=== PATIENT | female | born 1965 | race Caucasian/White ===

== ENCOUNTER 2023-06-11 06:28 | Day surgery (SDC) | payer MEDICARE, MEDICAID ==
[~2023-06-11] VITALS: Ht 165.1 cm; Wt 58.5 kg
[2023-06-11 09:06] VITALS: O2SAT 99
[2023-06-11] MEDS: MIDAZOLAM HCL 5 MG/5 ML VIAL ONE (10:05)
[2023-06-11] MEDS: fentaNYL CITRATE/PF 100 MCG/2 ML AMP ONE (10:05)
[2023-06-11 16:30] VITALS: BP_SYST 93; PULSE 60; RESP 14
== END 2023-06-11 11:51 | disposition home or self-care (01) ==
LOC: SDS 06:28 → SMU 06:31 → SDS 11:51
PROVIDERS: ATTEND Internal Medicine
DX: K56.609 Unspecified intestinal obstruction, unspecified as to partial versus complete obstruction (principal); Z93.3 Colostomy status; F41.9 Anxiety disorder, unspecified; Z79.899 Other long term (current) drug therapy
CPT/HCPCS: 44388; 99152; G0378; J2250; J3010

== ENCOUNTER 2023-10-26 10:06 | Day surgery (SDC) | payer MEDICARE, MEDICAID ==
[~2023-10-26] VITALS: Ht 165.1 cm; Wt 57.6 kg
[2023-10-26] MEDS ORDERED: MIDAZOLAM HCL 5 MG/5 ML VIAL ONE (12:20)
[2023-10-26] MEDS ORDERED: fentaNYL CITRATE/PF 100 MCG/2 ML AMP ONE (12:20)
[2023-10-26 13:16] VITALS: O2SAT 99
[2023-10-26 15:27] VITALS: BP_SYST 115; PULSE 84; RESP 17
== END 2023-10-26 14:20 | disposition home or self-care (01) ==
LOC: SDS 10:06 → SMU 10:09 → SDS 14:20
PROVIDERS: ATTEND Colon & Rectal Surgery
DX: Z12.11 Encounter for screening for malignant neoplasm of colon (principal); K62.89 Other specified diseases of anus and rectum; Z98.890 Other specified postprocedural states; Z79.899 Other long term (current) drug therapy; Z88.0 Allergy status to penicillin; Z80.41 Family history of malignant neoplasm of ovary; Z90.49 Acquired absence of other specified parts of digestive tract; Z80.0 Family history of malignant neoplasm of digestive organs; Z93.3 Colostomy status
CPT/HCPCS: 44388; 45330; 99152; 99153; G0378; J2250; J3010

== ENCOUNTER 2023-12-14 08:59 | Inpatient (IN) | payer MEDICARE, MEDICAID ==
[~2023-12-14] VITALS: Ht 165.1 cm; Wt 56.2 kg
[2023-12-14] MEDS: BUPIVACAINE LIPOSOME/PF 266 MG/20 ML VIAL INFIL ONE (09:31)
[2023-12-14] MEDS: CLINDAMYCIN PHOS 600 MG/ D5W 50 ML PREMIX IV ONE (09:45)
[2023-12-14] MEDS: CEFAZOLIN 2 GM IVPB PREMIX 50 ML IV ONE (09:50)
[2023-12-14] MEDS: CLINDAMYCIN 600 mg/50mL D5W 50 ML IV ONE (09:57)
[2023-12-14] MEDS ORDERED: LR 1,000 ML IV.SOLN IV ONE (10:00)
[2023-12-14] MEDS ORDERED: metroNIDAZOLE 500 mg/NS 100 mL IVPB IV ONE (10:00)
[2023-12-14] MEDS ORDERED: SEVOFLURANE 15 MIN GAS INH ONE (10:00)
[2023-12-14] MEDS ORDERED: NS IRRIG SOLN 1000 ML IR ONE (10:00)
[2023-12-14] MEDS ORDERED: ONDANSETRON HCL 4 MG/2 ML VIAL ONE (10:00)
[2023-12-14] MEDS ORDERED: METOCLOPRAMIDE HCL 10 MG/2 ML VIAL ONE (10:00)
[2023-12-14] MEDS ORDERED: ROCURONIUM BROMIDE 10 MG/ML (ZEMURON) ONE (10:00)
[2023-12-14] MEDS ORDERED: DEXAMETHASONE SOD PHOSPHATE 4 MG/ML VIAL ONE (10:00)
[2023-12-14] MEDS ORDERED: GLYCOPYRROLATE 0.2 MG/ML VIAL ONE (10:00)
[2023-12-14] MEDS ORDERED: ePHEDrine sulfate 50 MG/ML VIAL ONE (10:00)
[2023-12-14] MEDS ORDERED: NEOSTIGMINE METHYLSULFATE 1 MG/ML, 10 ML VIAL ONE (10:00)
[2023-12-14] MEDS ORDERED: WATER FOR IRRIGATION,STERILE 1,000 ML IRRIG.SOLN IR ONE (10:00)
[2023-12-14] MEDS ORDERED: PROPOFOL 200MG/ 20ML VIAL (DIPRIVAN) IV ONE (10:00)
[2023-12-14] MEDS: HYDROmorphone 2 MG/ML VIAL ONE (10:02)
[2023-12-14] MEDS ORDERED: MORPHINE 4 MG INJ. 4 MG/ML VIAL IVP PRN ×2 (12:15)
[2023-12-14] MEDS ORDERED: ONDANSETRON HCL 4 MG/2 ML VIAL IVP PRN (12:15)
[2023-12-14] MEDS ORDERED: METOCLOPRAMIDE HCL 10 MG/2 ML VIAL IVP PRN (12:15)
[2023-12-14] MEDS ORDERED: NALOXONE HCL 0.4 MG/ML AMP (NARCAN) IVP PRN ×4 (12:15→15:15)
[2023-12-14] MEDS: ONDANSETRON HCL 4 MG/2 ML VIAL ONE (15:00)
[2023-12-14] MEDS: ACETAMINOPHEN I.V. 1000 MG 100 ML IV ONE ×2 (15:10→15:15)
[2023-12-14] MEDS: HYDROmorphone 1 MG/ML INJ. CARTRIDGE ONE ×3 (15:14→16:14)
[2023-12-14] MEDS: fentaNYL CITRATE/PF 100 MCG/2 ML AMP IVP ONE ×2 (15:15→15:20)
[2023-12-14] MEDS ORDERED: HYDROcodone/ACETAMIN 5-325 MG TAB (NORCO/ VICODIN) PO PRN (15:15)
[2023-12-14] MEDS ORDERED: ACETAMINOPHEN 325 MG TABLET PO PRN (15:15)
[2023-12-14] MEDS: fentaNYL CITRATE/PF 100 MCG/2 ML AMP ONE (15:15)
[2023-12-14] MEDS: HYDROmorphone 1 MG/ML INJ. CARTRIDGE IVP PRN ×2 (16:00→20:27)
[2023-12-14 16:14] LABS: HEMATOCRIT 31.9 % (36-48)
[2023-12-14 16:28] LABS: CALCIUM 8.2 mg/dL (8.4-11.0); CREATININE 0.75 mg/dL (0.55-1.30); POTASSIUM 3.4 mmol/L (3.5-5.1)
[2023-12-14] MEDS ORDERED: IBUP-2604 PO (16:38)
[2023-12-14] MEDS ORDERED: TRAZ-251 PO (16:38)
[2023-12-14] MEDS ORDERED: ACET325T53 PO (16:38)
[2023-12-14] MEDS ORDERED: GABA-534 PO (16:38)
[2023-12-14 17:16] VITALS: BP_SYST 127; PULSE 85; RESP 14; TEMP 97.3; O2SAT 100
[2023-12-14 17:33] VITALS: BP_SYST 127; PULSE 85; RESP 16; TEMP 97.3; O2SAT 100
[2023-12-14 20:00] VITALS: O2SAT 98
[2023-12-14] MEDS: D5/0.45 NS 1,000 ML IV SCH (22:10)
[2023-12-14] MEDS: FAMOTIDINE PF 20 MG/2 ML VIAL IVP SCH (23:45)
[2023-12-15] VITALS (7 sets, daily range): BP systolic 132–152; PULSE 73–95; RESP 15–20; TEMP 96.6–98.3; O2SAT 97–100
[2023-12-15] MEDS: metroNIDAZOLE 500 mg/NS 100 ML IV SCH (00:55)
[2023-12-15] MEDS ORDERED: CALCIUM GLUCONATE 2 GM in NS 100 ML IV ONE (08:30)
[2023-12-15] MEDS: ENOXAPARIN SODIUM 30 MG/0.3 ML SYRINGE SUBCUT SCH (08:37)
[2023-12-15] MEDS: HYDROcodone/ACETAMIN 5-325 MG TAB (NORCO/ VICODIN) PO PRN (10:14)
[2023-12-15] MEDS ORDERED: NALOXONE HCL 0.4 MG/ML AMP (NARCAN) IVP PRN ×2 (10:45→12:45)
[2023-12-15] MEDS: MEPERIDINE 50 MG/ML VIAL IM PRN (11:06)
[2023-12-15] MEDS: HYDROmorphone 1 MG/ML INJ. CARTRIDGE IVP PRN (15:46)
[2023-12-15 16:06] LABS: RED CELL DISTRIBUTION WIDTH 13.1 % (9.0-15.0); WHITE BLOOD COUNT (AUTO) 13.7 K/uL (4.8-10.8)
[2023-12-15 16:16] LABS: ALBUMIN 3.4 g/dL (3.4-4.8); CALCIUM 8.8 mg/dL (8.4-11.0); CREATININE 0.66 mg/dL (0.55-1.30); POTASSIUM 3.1 mmol/L (3.5-5.1); TOTAL BILIRUBIN 0.6 mg/dL (0.0-1.0); TOTAL PROTEIN, SERUM 6.7 g/dL (6.4-8.3)
[2023-12-15 16:52] LABS: BASOPHILS % (AUTO) 0.3 % (0.0-2.0); HEMATOCRIT 31.5 % (36-48); LYMPHOCYTES # (AUTO) 1.5 K/uL (1.0-5.5); LYMPHOCYTES % (AUTO) 11.1 % (20.5-51.5); MEAN CORPUSCULAR HEMOGLOBIN 36 pg (27-31); MEAN CORPUSCULAR HGB CONC 35 % (32-36); MEAN CORPUSCULAR VOLUME 103 fL (79.0-98.0); MONOCYTES # (AUTO) 0.7 K/uL (0.0-1.0); MONOCYTES % (AUTO) 4.9 % (1.7-9.3); NEUTROPHILS # (AUTO) 11.4 K/uL (1.8-7.7); NEUTROPHILS % (AUTO) 83.7 % (40.0-70.0); PLATELET COUNT (AUTO) 316 K/uL (130-430); RED BLOOD CELL COUNT(AUTO) 3.06 MIL/uL (4.2-6.2)
[2023-12-15] MEDS: METOCLOPRAMIDE HCL 10 MG/2 ML VIAL IVP SCH (18:18)
[2023-12-15] MEDS: POTASSIUM CHLORIDE 40 MEQ in NS 250 ML IV ONE (19:52)
[2023-12-16 00:02] VITALS: BP_SYST 148; PULSE 99; RESP 16; TEMP 98.4; O2SAT 99
[2023-12-16 08:00] VITALS: O2SAT 99
[2023-12-16 08:12] VITALS: BP_SYST 132; PULSE 121; TEMP 98.5; O2SAT 99
[2023-12-16 11:10] VITALS: BP_SYST 136; PULSE 109; RESP 16; TEMP 98.7; O2SAT 99
[2023-12-16 15:51] VITALS: BP_SYST 119; PULSE 107; RESP 16; TEMP 97.1; O2SAT 96
[2023-12-16 17:26] LABS: BASOPHILS % (AUTO) 0.3 % (0.0-2.0); EOSINOPHILS % (AUTO) 0.3 % (0.0-4.0); HEMATOCRIT 28.6 % (36-48); LYMPHOCYTES # (AUTO) 1.9 K/uL (1.0-5.5); MEAN CORPUSCULAR HEMOGLOBIN 36 pg (27-31); MEAN CORPUSCULAR HGB CONC 35 % (32-36); MEAN CORPUSCULAR VOLUME 102 fL (79.0-98.0); MONOCYTES # (AUTO) 0.5 K/uL (0.0-1.0); MONOCYTES % (AUTO) 4.3 % (1.7-9.3); NEUTROPHILS # (AUTO) 10.3 K/uL (1.8-7.7); NEUTROPHILS % (AUTO) 80.1 % (40.0-70.0); PLATELET COUNT (AUTO) 290 K/uL (130-430); RED CELL DISTRIBUTION WIDTH 12.6 % (9.0-15.0); WHITE BLOOD COUNT (AUTO) 12.8 K/uL (4.8-10.8)
[2023-12-16 17:30] LABS: ALBUMIN 2.9 g/dL (3.4-4.8); CALCIUM 8.4 mg/dL (8.4-11.0); CREATININE 0.64 mg/dL (0.55-1.30); POTASSIUM 3.1 mmol/L (3.5-5.1); TOTAL BILIRUBIN 0.5 mg/dL (0.0-1.0); TOTAL PROTEIN, SERUM 6.4 g/dL (6.4-8.3)
[2023-12-16 20:00] VITALS: BP_SYST 126; PULSE 112; RESP 18; TEMP 98.4; O2SAT 98
[2023-12-17 00:41] VITALS: BP_SYST 126; PULSE 103; RESP 18; TEMP 98.2
[2023-12-17 08:00] VITALS: BP_SYST 119; PULSE 102; RESP 15; TEMP 97.7; O2SAT 96
[2023-12-17 09:48] VITALS: O2SAT 96
[2023-12-17 12:50] VITALS: BP_SYST 126; PULSE 105; RESP 18; TEMP 98.6; O2SAT 99
[2023-12-17] MEDS: ONDANSETRON HCL 4 MG/2 ML VIAL IVP PRN (13:23)
[2023-12-17] MEDS: POTASSIUM CHLORIDE 40 MEQ in NS 250 ML IV ONE (14:00)
[2023-12-17 17:18] VITALS: BP_SYST 128; PULSE 101; RESP 16; TEMP 98.4; O2SAT 99
[2023-12-17 20:00] VITALS: BP_SYST 146; PULSE 95; RESP 20; TEMP 96; O2SAT 97
[2023-12-18] VITALS: BP_SYST 138; PULSE 103; RESP 18; TEMP 96.9; O2SAT 99
[2023-12-18 06:51] LABS: BASOPHILS % (AUTO) 0.2 % (0.0-2.0); HEMATOCRIT 29.8 % (36-48); HEMOGLOBIN 10.1 g/dL (12.0-16.0); LYMPHOCYTES # (AUTO) 0.7 K/uL (1.0-5.5); LYMPHOCYTES % (AUTO) 4.9 % (20.5-51.5); MEAN CORPUSCULAR HEMOGLOBIN 35 pg (27-31); MEAN CORPUSCULAR HGB CONC 34 % (32-36); MEAN CORPUSCULAR VOLUME 103 fL (79.0-98.0); MONOCYTES # (AUTO) 0.7 K/uL (0.0-1.0); MONOCYTES % (AUTO) 5.4 % (1.7-9.3); NEUTROPHILS # (AUTO) 12.2 K/uL (1.8-7.7); NEUTROPHILS % (AUTO) 89.5 % (40.0-70.0); PLATELET COUNT (AUTO) 411 K/uL (130-430); RED CELL DISTRIBUTION WIDTH 12.4 % (9.0-15.0); WHITE BLOOD COUNT (AUTO) 13.6 K/uL (4.8-10.8)
[2023-12-18 07:28] LABS: ALBUMIN 3.2 g/dL (3.4-4.8); CALCIUM 8.7 mg/dL (8.4-11.0); CREATININE 0.54 mg/dL (0.55-1.30); POTASSIUM 3.2 mmol/L (3.5-5.1); TOTAL BILIRUBIN 0.6 mg/dL (0.0-1.0); TOTAL PROTEIN, SERUM 6.8 g/dL (6.4-8.3)
[2023-12-18 08:38] VITALS: BP_SYST 139; PULSE 103; RESP 18; TEMP 96.9; O2SAT 98
[2023-12-18 09:30] VITALS: O2SAT 98
[2023-12-18 12:07] VITALS: BP_SYST 137; PULSE 98; RESP 19; TEMP 96.4; O2SAT 96
[2023-12-18] MEDS: POTASSIUM CHLORIDE 40 MEQ in NS 250 ML IV ONE (14:26)
[2023-12-18 16:05] VITALS: BP_SYST 138; PULSE 100; RESP 18; TEMP 97.2; O2SAT 97
[2023-12-18 20:00] VITALS: BP_SYST 140; PULSE 101; RESP 18; TEMP 97.7; O2SAT 98
[2023-12-19 09:00] VITALS: O2SAT 98
[2023-12-19 09:08] VITALS: BP_SYST 138; PULSE 94; RESP 19; TEMP 97.2; O2SAT 100
[2023-12-19 12:47] VITALS: BP_SYST 139; PULSE 96; RESP 20; TEMP 97.4; O2SAT 97
[2023-12-19 16:00] VITALS: BP_SYST 130; PULSE 110; RESP 18; TEMP 98.2; O2SAT 98
[2023-12-19 20:00] VITALS: BP_SYST 145; PULSE 97; RESP 18; TEMP 98.4; O2SAT 99
[2023-12-20] VITALS: BP_SYST 142; PULSE 97; RESP 18; TEMP 98.4; O2SAT 96
[2023-12-20 08:02] VITALS: BP_SYST 143; PULSE 94; RESP 16; TEMP 98.5
[2023-12-20 12:57] VITALS: BP_SYST 144; PULSE 95; RESP 17; TEMP 98.6; O2SAT 98
[2023-12-20 16:01] VITALS: BP_SYST 140; PULSE 92; RESP 16; TEMP 98.7; O2SAT 97
[2023-12-20 16:42] LABS: CALCIUM 8.9 mg/dL (8.4-11.0); CREATININE 0.81 mg/dL (0.55-1.30); TOTAL BILIRUBIN 0.5 mg/dL (0.0-1.0)
[2023-12-20 17:12] LABS: HEMATOCRIT 30.3 % (36-48); HEMOGLOBIN 10.5 g/dL (12.0-16.0); MEAN CORPUSCULAR HEMOGLOBIN 34 pg (27-31); MEAN CORPUSCULAR HGB CONC 35 % (32-36); MEAN CORPUSCULAR VOLUME 99 fL (79.0-98.0); PLATELET COUNT (AUTO) 523 K/uL (130-430); RED BLOOD CELL COUNT(AUTO) 3.05 MIL/uL (4.2-6.2); RED CELL DISTRIBUTION WIDTH 12.6 % (9.0-15.0); WHITE BLOOD COUNT (AUTO) 11.7 K/uL (4.8-10.8)
[2023-12-20 19:15] LABS: BAND % (MANUAL) 26 % (0-6); BASOPHILS % (MANUAL) 0 % (0-2); EOSINOPHILS % (MANUAL) 1 % (0-7); LYMPHOCYTES % (MANUAL) 12 % (20-46); MONOCYTES % (MANUAL) 16 % (0-11); PLATELET ESTIMATE INCREASED (ADEQUATE); POLYCHROMASIA 1+
[2023-12-20 19:16] LABS: STOMATOCYTES FEW; TEAR DROP CELLS FEW
[2023-12-20 20:00] VITALS: BP_SYST 140; PULSE 93; RESP 18; TEMP 97.3; O2SAT 97
[2023-12-20] MEDS: KCL 40 mEq in 100 mL (PREMIX) 100 ML IV ONE (21:17)
[2023-12-20] MEDS: POTASSIUM CHLORIDE 40 MEQ in NS 250 ML IV ONE (21:18)
[2023-12-20] MEDS: HYDROmorphone 1 MG/ML INJ. CARTRIDGE IVP PRN (21:37)
[2023-12-21 00:12] VITALS: BP_SYST 138; PULSE 87; RESP 18; TEMP 98.1; O2SAT 99
[2023-12-21 06:56] LABS: ALBUMIN 3.2 g/dL (3.4-4.8); CREATININE 0.8 mg/dL (0.55-1.30); TOTAL BILIRUBIN 0.5 mg/dL (0.0-1.0); TOTAL PROTEIN, SERUM 6.5 g/dL (6.4-8.3)
[2023-12-21 08:00] VITALS: BP_SYST 134; PULSE 96; RESP 18; TEMP 99.1; O2SAT 100
[2023-12-21 08:35] LABS: POTASSIUM 2.8 mmol/L (3.5-5.1)
[2023-12-21] MEDS ORDERED: KCL 40 mEq in 100 mL (PREMIX) 100 ML IV ONE (08:45)
[2023-12-21] MEDS: POTASSIUM CHLORIDE 20 mEq in 100 mL (PREMIX) 100 ML x 2 doses IV SCH (09:16)
[2023-12-21 10:30] VITALS: O2SAT 100
[2023-12-21 11:07] VITALS: BP_SYST 140; PULSE 92; RESP 14; TEMP 96.8; O2SAT 97
[2023-12-21] MEDS: DIPHENHYDRAMINE INJ 50 MG/ML VIAL IM PRN (14:33)
[2023-12-21 16:14] VITALS: BP_SYST 135; PULSE 91; RESP 14; TEMP 97.3; O2SAT 97
[2023-12-21 20:00] VITALS: BP_SYST 146; PULSE 120; RESP 16; TEMP 98.7; O2SAT 99
== END 2023-12-22 03:42 | disposition left against medical advice (07) | DRG 331 ==
LOC: SMU 08:59
PROVIDERS: ADMIT Colon & Rectal Surgery; ATTEND Colon & Rectal Surgery
PROC: 0DB80ZZ Excision of Small Intestine, Open Approach (ICD-10-PCS; 2023-12-14)
PROC: 0DSM0ZZ Reposition Descending Colon, Open Approach (ICD-10-PCS; 2023-12-14)
PROC: 0DBN0ZZ Excision of Sigmoid Colon, Open Approach (ICD-10-PCS; 2023-12-14)
PROC: 0DN80ZZ Release Small Intestine, Open Approach (ICD-10-PCS; 2023-12-14)
PROC: 0DTJ0ZZ Resection of Appendix, Open Approach (ICD-10-PCS; principal; 2023-12-14 10:10)
DX: Z43.3 Encounter for attention to colostomy (principal); K66.0 Peritoneal adhesions (postprocedural) (postinfection); Z98.0 Intestinal bypass and anastomosis status
CPT/HCPCS: 36415; 80048; 80053; 84132; 85007; 85018; 85025; 85027; 86886; 86900; 86901; 87081; 88304; 88305; 88307; 97110-GP; 97116-GP; 97530-GP; C9290; J0131; J0690; J1100; J1171; J1200; J1650; J1956; J2175; J2405; J2704; J2710; J2765; J3010; J3480; J3490; J7050; J7120